=== PATIENT | female | born 1980 | race Caucasian/White ===

== ENCOUNTER 2022-09-25 07:52 | Day surgery (SDC) | payer BC ==
[2022-09-25] MEDS: Lactated Ringers 1,000 ML IV SCH ×2 (07:43→11:35)
[~2022-09-25 07:52] MED LIST: Lidocaine 1%/Sod Bicarbonate in NS 8.4% 1 ML Syringe IDERM PRN; Sodium Chloride 0.9% 10 ML Syringe FLUSH PRN; Sodium Chloride 0.9% 10 ML Syringe FLUSH SCH
[2022-09-25] MEDS ORDERED: Propofol 200 MG/20 ML SDV ONE ×5 (07:58→10:07)
[2022-09-25 08:16] LABS: ESTIMATED GFR 94 mL/min (>60)
[2022-09-25] MEDS ORDERED: Bupivacaine 0.5% 30 ML SDV ONE (08:19)
[2022-09-25] MEDS ORDERED: Lidocaine 1% 30 ML SDV ONE (08:19)
[2022-09-25] MEDS ORDERED: Ondansetron 4 MG/2 ML SDV ONE (08:31)
[2022-09-25] MEDS ORDERED: Lidocaine 1% 2 ML ONE (08:31)
[2022-09-25] MEDS ORDERED: Midazolam 1 MG/ML 2 ML SDV ONE (08:31)
[2022-09-25] MEDS ORDERED: fentaNYL 100 MCG/2 ML SDV ONE ×2 (08:32→10:25)
[2022-09-25] MEDS ORDERED: Dexmedetomidine 200 MCG/2 ML SDV ONE (08:33)
[2022-09-25] MEDS ORDERED: Dexamethasone 4 MG/ML 5 ML MDV ONE (08:35)
[2022-09-25] MEDS ORDERED: Rocuronium 50 MG/5 ML Vial ONE (08:35)
[2022-09-25] MEDS ORDERED: Bupivacaine 0.25%/EPINEPHrine 1:200,000 30 ML SDV ONE (08:38)
[2022-09-25] MEDS ORDERED: Ketamine 500 mg/10 ML MDV ONE (08:41)
[2022-09-25] MEDS ORDERED: Sugammadex Sodium 200 MG/2 ML VIAL ONE (08:43)
[2022-09-25] MEDS ORDERED: ceFAZolin 2 GM Vial ONE (09:00)
[2022-09-25] MEDS ORDERED: fentaNYL 100 MCG/2 ML SDV IVPUSH PRN (09:58)
[2022-09-25] MEDS ORDERED: Ondansetron 4 MG/2 ML SDV IVPUSH PRN (09:58)
[2022-09-25] MEDS ORDERED: HYDROmorphone 0.5 MG/0.5 ML Syringe IVPUSH PRN (09:58)
[2022-09-25] MEDS ORDERED: Lactated Ringers 1,000 ML ONE (10:20)
[2022-09-25] MEDS ORDERED: diphenhydrAMINE 50 MG/ML SDV ONE (10:24)
[2022-09-25] MEDS ORDERED: Ketorolac 30 MG/ML SDV ONE (10:24)
[2022-09-25] MEDS ORDERED: HYDROmorphone 0.5 MG/0.5 ML Syringe ONE (10:44)
[2022-09-25] MEDS ORDERED: Acetaminophen/oxyCODONE 325-5 MG Tab PO SCH (13:32)
[2022-09-25 15:06] VITALS: BP 115/83; PULSE 70
== END 2022-09-25 14:04 | disposition home or self-care (01) ==
LOC: JD.SDS 07:52
PROVIDERS: ATTEND Obstetrics & Gynecology
DX: N80.03 Adenomyosis of the uterus (principal); F31.9 Bipolar disorder, unspecified; F41.9 Anxiety disorder, unspecified; Z98.890 Other specified postprocedural states; Z79.899 Other long term (current) drug therapy; Z88.1 Allergy status to other antibiotic agents
CPT/HCPCS: 36415; 58552; 80048; 85025; 86850; 86900; 86901; A9270; J0690; J1100; J1170; J1885; J2405; J2704; J3010; J3490; J7120; J1200; J2250